=== PATIENT | female | born 1960 | race Caucasian/White ===

== ENCOUNTER 2017-03-20 18:33 | Emergency (ER) | payer BC ==
--- NOTE | 2017-03-20 20:14 | UC ---
Skin Complaint HPI - HPI Summary HPI Summary: 56 y/o female presents to the urgent care c/o generalized itchiness for the past 2 days. Pt reports it feels like pins and needles in B/L upper arms, abdomen, back and b/L thighs. Sometime it feels like bee stings. She has Hx of DDD at L4-L5 s/p laminectomy on .Sometimes she has RT scaitic nerve which has worsen since yesterday. Pain is 9/10 radiating to the RT lower extremity. Pt denies fever. saddle anesthesia, urinary or fecal incontinence, numbness and tingling sensation over the lower extremities. She took 4 Benadryl last night and another 4 this morning and all day she has felt with mouth dryness and thirst. Pt has good BM and urinating well. Pt denies fever, SOB, chest pain, abdominal pain, N/V/D, urinary symptoms or change in medications, eating something different, or using different soap or lotions. - History of Current Complaint Time Seen by Provider: 03/20/17 20:13 Stated Complaint: SKIM COMP Hx Obtained From: Patient Hx Last Menstrual Period: menopausal Onset/Duration: Gradual Onset, Lasting Days - 2 days, Still Present, Worse Since - yesterday Skin Exposure Onset/Duration: Days Ago - 2 days Timing: Constant Onset Severity: Moderate Current Severity: Severe Pain Intensity: 9 Pain Scale Used: 0-10 Numeric Location: Generalized - rash, Other - Rt side lower back pain Character: Pruritus Aggravating Factor(s): Nothing Alleviating Factor(s): Antihistamines Associated Signs & Symptoms: Positive: Thirst, Rash. Negative: Diaphoresis, Weakness, Fever, Chills, Wheezing, Hoarseness, Throat Tightening, Drainage, Tenderness, Red Streaks - Allergy/Home Medications Allergies/Adverse Reactions: Allergies Allergy/AdvReac Type Severity Reaction Status Date / Time Nitrofurantoin Allergy See Comment Verified 03/20/17 20:19 [From Macrobid] Prochlorperazine Allergy GI Upset Verified 03/20/17 20:19 [From Compazine] Home Medications: Home Medications ARIPiprazole TAB* [Abilify 2 MG TAB*] 2 mg PO DAILY 03/20/17 [History Confirmed 03/20/17] DULoxetine DR CAP* [Cymbalta CAP*] 60 mg PO BID 03/20/17 [History Confirmed ] Levothyroxine TAB* [Synthroid 100 MCG TAB*] 100 mcg PO DAILY 03/20/17 [History Confirmed 03/20/17] Omeprazole CAP* [Prilosec CAP* 20 MG] 40 mg PO DAILY 03/20/17 [History Confirmed 03/20/17] Propranolol TAB* [Inderal TAB*] 10 mg PO TID 03/20/17 [History Confirmed ] Tolterodine Tartrate [Detrol LA] 4 mg PO DAILY 03/20/17 [History Confirmed 03/20] clonazePAM TAB(*) [Klonopin TAB(*)] 1 mg PO QID PRN 03/20/17 [History Confirmed 03/20/17] Review of Systems Constitutional: Negative Skin: Rash - generalized rash in both upper arms. upper thighs, abdomen, back Eyes: Negative ENT: Negative Respiratory: Negative Cardiovascular: Negative Gastrointestinal: Negative Genitourinary: Negative Motor: Negative Neurovascular: Negative Musculoskeletal: Other: - RT side lower back pain Neurological: Negative Psychological: Negative Is Patient Immunocompromised?: No All Other Systems Reviewed And Are Negative: Yes PMH/Surg Hx/FS Hx/Imm Hx Previously Healthy: Yes Endocrine History: Hypothyroidism GI/ History: Gastroesophageal Reflux Other GI/ History: Over reactive bladder, IBS Other Neurological History: Degenrative disc disease Psychological History: Anxiety, Depression - Family History Known Family History: Positive: None Family History: Hypothyrodism - Social History Occupation: Employed Full-time Lives: With Family Physical Exam Triage Information Reviewed: Yes - Additional Comments Vital Signs Reviewed: Yes General: well developed, well nourished female sitting in the examining table w/ o any apparent distress Eye Exam: Normal Eyes: Positive: Conjunctiva Clear - PERRLA, EOMI, fundi grossly normal ENT: Positive: Normal ENT inspection, Hearing grossly normal, Pharynx normal, TMs normal Neck: Positive: Supple, Nontender, No Lymphadenopathy Respiratory: Positive: Chest non-tender, Lungs clear, Normal breath sounds, No respiratory distress Cardiovascular: Positive: RRR, No Murmur, Pulses Normal, Brisk Capillary Refill Abdomen Description: Positive: Nontender, No Organomegaly, Soft. Negative: CVA Tenderness (R), CVA Tenderness (L) Bowel Sounds: Positive: Present Musculoskeletal: Positive: Strength Intact, ROM Intact, No Edema BACK: Patient walked into the urgent care room with symmetric ambulation, No signs of limping, antalgic, able to bear weight. No signs of trauma, no soft tissue, no swelling, RT side paraspinal muscles tenderness at the level of L4- L5 w/ mild spasm, No CVAT, no flank ecchymosis . No sacroiliac notch tenderness , No saddle anesthesia. Decrease ROM due to pain.Straight Leg Raise: negative.Patellar reflexes: brisk, symmetric Muscle strength lower extremities. Dorsiflexion/ plantar flexion of ankles. Heel/ toe walk.Lower extremities: Femoral, popliteal, posterior tibial, and dorsalis pedis pulses with in normal, Rectal: Patient refused the exam. Neurological: Positive: Alert, Muscle Tone Normal Psychological Exam: Normal Skin: Positive: rashes - Positive discrete erythematous macular eruption in B/L upper arms, B/L upper thighs mid back and lateral side of abdomen. Signs of scoriation, non tender to palaption, no swelling, hives or drainage observed. Course/Dx - Course Course Of Treatment: 56 y/o female presents to the urgent care c/o generalized itchiness for the past 2 days. Pt reports it feels like pins and needles in B/L upper arms, abdomen, back and b/L thighs. Sometime it feels like bee stings. She has Hx of DDD at L4-L5 s/p laminectomy on .Sometimes she has RT scaitic nerve which has worsen since yesterday. Pain is 9/10 radiating to the RT lower extremity. Pt denies fever. saddle anesthesia, urinary or fecal incontinence, numbness and tingling sensation over the lower extremities. She took 4 Benadryl last night and another 4 this morning and all day she has felt with mouth dryness and thirst. Pt has good BM and urinating well. Pt denies fever, sOB, chest pain, abdominal pain, N/V/D, urinary symptoms.change in medications, eating something different, or using different soaps or lotions. Hx obtained. Pt with a discrete generalized eruption of unknown origin and severe pruritus. Pt's symptoms discussed with Dr Lamb. He recommended Steroids and f/u with PCP in 2-3 days. Pt given Methylprednisolone IM inj to alleviate symptoms. Pt tolerated well medication and felt better. Pt Rx Prednisone PO taper dose. Pt educated in taking Benadryl PO and its side effects. Pt also advised to go immediately to the ER if she develops severe rash with SOB for further management. Strongly advised to f/u with her PCP for blood work and further management. Pt understood and agreed [facility] D/c instructions. Pt left the clinic ambulating and A&OX3. - Differential Diagnoses - Skin Complaint Differential Diagnoses: Allergic Reaction, Cellulitis, Contact Dermatitis, Drug Rash, Drug Intoxication, Local Allergic Reaction, Medication; Adverse Reaction, Urticaria - Diagnoses Provider Diagnoses: 1- Acute rash. 2-Pruritus. 3- Rt side sciatica - Physician Notification/Consults Discussed Patient Care With: Evan Lamb - Dr Lamb agreed with Pt's plan of care Discharge - Discharge Plan Condition: Stable Disposition: HOME Prescriptions: diPHENhydraMINE PO* [Benadryl PO 25 MG TAB*] 25 mg PO Q6H PRN #30 tab PRN Reason: Pruritis predniSONE TAB* [Deltasone TAB*] 20 mg PO DAILY #11 tab Patient Education Materials: Acute Rash (ED), Itchy Skin (ED) Referrals: Evonne Dawkins MD [Primary Care Provider] - 2 Days Additional Instructions: 1-Please take Prednisone PO starting tomorrow to alleviate symptoms. 2-Take Benadryl PO as directed to alleviate pruritus. Pleas do not drive while taking it or take too many tablet at one. Increase fluid intake 3-If symptoms do not improve or worsen please f/u with your PCP in 2 days for blood work and further evaluation and treatment. 4- If you developed severe rash, SOB please go immediately to the ER for further treatment
[2017-03-20] MEDS ORDERED: methylPREDNISolone 125 MG* 2 ML VIAL IM ONE (20:46)
== END 2017-03-20 21:43 | disposition home or self-care (01) ==
LOC: UCCORT 18:33
DX: L29.9 Pruritus, unspecified (principal); M54.41 Lumbago with sciatica, right side; E03.9 Hypothyroidism, unspecified; K21.9 Gastro-esophageal reflux disease without esophagitis; F41.9 Anxiety disorder, unspecified; F32.9 Major depressive disorder, single episode, unspecified; N32.81 Overactive bladder; K58.9 Irritable bowel syndrome, unspecified; Z88.1 Allergy status to other antibiotic agents; Z88.8 Allergy status to other drugs, medicaments and biological substances
CPT/HCPCS: 81003; 96372; 99202; G0463; J2930